=== PATIENT | male | born 1950 | race Caucasian/White ===

== ENCOUNTER → 2016-09-04 | Outpatient (CLI) | payer MEDICARE, OTHER ==
--- NOTE | 2016-09-04 11:00 | US ---
EXAMINATION TYPE: US abdomen complete DATE OF EXAM: 09/04/2016 COMPARISON: Previous US abdomen 10/11/2014 CLINICAL HISTORY: R10.9 R lateral abdominal pain. RUQ pain, history of hepatitis EXAM MEASUREMENTS: Liver Length: 16.5 cm Gallbladder Wall: 1.2 cm CBD: 0.4 cm Spleen: 13.2 cm Right Kidney: 12.3 x 3.6 x 4.7 cm Left Kidney: 13.4 x 5.7 x 5.2 cm Pancreas: there appears to be and irregular shaped, vascular mass either within the pancreas or at t he level of the head of the pancreas measuring 7.5 x 2.8 x 4.2cm Liver: mildly echogenic mass seen in the left lobe with vascularity measuring 1.7 x 1.4 x 2.3cm, rig ht lobe has large area that appears grossly heterogenous, unable to see distinct border, but findings consistent with a large mass Gallbladder: stone seen and thickened wall Evidence for sonographic Persaud's sign: No CBD: wnl Spleen: Splenomegaly is noted, spleen is slightly greater than 13 cm Right Kidney: Inferior pole obscured by overlying bowel gas cortical medullary differentiation is maintained. Left Kidney: Cortical medullary differentiation is maintained. Upper IVC: wnl Abd Aorta: some portions obscured by bowel gas, bifurcation not seen, no AAA visualized FF in Morrisons pouch There is minimal ascites. Kidneys are symmetric and free of hydronephrosis. No renal lesions are see n. IMPRESSION: Findings could represent hepatoma or metastatic disease to the liver. Cholelithiasis, gal lbladder wall thickening is noted, correlate to exclude cholecystitis. Splenomegaly. The liver may be enlarged. Report relayed telephonically to the office of the referring clinician at the time of inte rpretation, to Katherine.
== END | disposition home or self-care (01) ==
LOC: RADUSMAIN 07:55
PROVIDERS: ATTEND Family Medicine
DX: K80.20 Calculus of gallbladder without cholecystitis without obstruction (principal); R16.1 Splenomegaly, not elsewhere classified
CPT/HCPCS: 76700

== ENCOUNTER → 2016-09-11 | Outpatient (CLI) | payer MEDICARE, OTHER ==
--- NOTE | 2016-09-12 09:19 | CT ---
EXAMINATION TYPE: CT abdomen w con DATE OF EXAM: 09/11/2016 COMPARISON: Recent abdominal ultrasound September 04, 2016 and older ultrasound January 07, 2013 HISTORY: Right sided abdominal pain x [address] DLP: 604.60 mGycm, Automated Exposure Control for Dose Reduction was Utilized. CONTRAST: CT scan of the abdomen is performed with oral and with IV Contrast, patient injected with 100 mL of O mnipaque 300. FINDINGS: LUNG BASES: No significant abnormality is appreciated. LIVER/GB: There are 2 low dense lesions right hepatic dome too small to further characterize but like ly reflecting simple cysts. Anteriorly in the left hepatic lobe on image 13 series 3 there is 2.3 cm heterogeneous hypodense lesi on with peripheral nodular enhancement that shows progressive centripetal filling consistent with hem angioma. Corresponding to new area of ultrasound concern occupying significant portion of the right hepatic lo be from diaphragm through inferior aspect there is heterogeneous geographic lesion. There is nonfilli ng of right portal vein branch consistent with thrombus. Tiny dependent gallstone is suspected in gallbladder on axial image 33. PANCREAS: No significant abnormality is seen. SPLEEN: Spleen is upper limits of normal in size. ADRENALS: Slight thickening to both adrenal glands favors benign hyperplasia. KIDNEYS: There is 3 mm calculus upper pole level left kidney on coronal image 69. There are 3-4 small calculi scattered throughout right kidney. There is symmetric cortical medullary uptake and excretio n from both kidneys without evidence of hydronephrosis bilaterally. BOWEL: No significant abnormality is seen. LYMPH NODES: Adjacent to caudate lobe just posterior to the portal vein there is heterogeneous upper abdominal mass measuring 3.7 x 3.6 cm on axial image 21 with craniocaudal dimension of 6 cm on sagitt al image 60. Inferior to this at left para-aortic level there is 3.7 x 2.2 cm oval mass. OSSEOUS STRUCTURES: There is multilevel bridging spurs in the thoracolumbar spine. There is mild to m oderate height loss involving L1-L3 vertebra. [place] osseous structures are demineralized. OTHER: There is mild/moderate calcified atherosclerotic change of distal aorta. IMPRESSION: 1. Abnormal upper to mid abdominal masses or adenopathy worrisome for neoplasm or nneka hepatic adeno keven. 2. Right portal vein branch thrombus with heterogeneity of significant portion of right hepatic lobe. Heterogeneity may be product of altered vascular mechanics but underlying neoplasm such as HCC need to be considered. Thrombus could be bland or tumor thrombus. Latter is favored. Case discussed with ordering nurse practitioner via telephone at time report was finalized.
== END | disposition home or self-care (01) ==
LOC: RADCTMAIN 18:39
PROVIDERS: ATTEND Family Medicine
DX: I81 Portal vein thrombosis (principal); I82.0 Budd-Chiari syndrome
CPT/HCPCS: 74160; Q9967

== ENCOUNTER 2016-09-12 09:54 | Inpatient (IN) | payer MEDICARE, OTHER ==
[2016-09-12] MEDS ORDERED: SODIUM CHLORIDE 0.9% 1,000 ML IV STA (10:17)
[2016-09-12] MEDS ORDERED: PANTOPRAZOLE 40 MG/10 ML VIAL IVP STA (10:17)
--- NOTE | 2016-09-12 10:47 | ED ---
Abdominal Pain HPI - General Chief Complaint: Abdominal Pain Stated Complaint: abnormal CT results Time Seen by Provider: 09/12/16 10:09 Source: patient Mode of arrival: ambulatory Limitations: no limitations - History of Present Illness Initial Comments: This 65-year-old white male presents with the complaint of some abdominal pain. This is primarily into the right upper quadrant and has been present for approximately 2 months. It initially was intermittent but then has become constant over the last 1 month. It is much worse with any eating he developed significant bloating with eating as well. He has had some nausea at times but none currently. He has had occasional constipation but is now taking fiber supplements. He denies any fevers or chills. He had a ultrasound done of his abdomen on 09/04/2016 and this apparently showed the possibility of a liver mass. It also showed cholelithiasis with possible cholecystitis. He had a computed tomography scan of his abdomen and pelvis yesterday and this does show an abdominal/liver mass versus adenopathy, please see report for full details. It also does show a right portal vein thrombus. He was sent in today by his primary provider for further evaluation and treatment. He denies any other complaints or modifying factors. He refuses anything for pain or nausea currently. - Related Data Home Medications Medication Instructions Recorded Confirmed Aspirin 81 mg PO DAILY 08/10/14 09/12/16 [place]-3 Fatty Acids/Fish Oil [Fish 1 cap PO BID 08/10/14 09/12/16 Oil 1,000 mg Softgel] Allergies Allergy/AdvReac Type Severity Reaction Status Date / Time peanut Allergy Nausea & Verified 09/12/16 11:07 Vomiting Review of Systems ROS Statement: Those systems with pertinent positive or pertinent negative responses have been documented in the HPI. ROS Other: All systems not noted in ROS Statement are negative. Past Medical History Past Medical History: Coronary Artery Disease (CAD), Chest Pain / Angina, Myocardial Infarction ([place]) Additional Past Medical History / Comment(s): hepatitis c History of Any Multi-Drug Resistant Organisms: None Reported Past Surgical History: Heart Catheterization With Stent, Hernia Repair, Orthopedic Surgery Past Psychological History: No Psychological Hx Reported Smoking Status: Current every day smoker Past Alcohol Use History: None Reported Past Drug Use History: Marijuana General Exam - General Exam Comments Initial Comments: GENERAL: The patient is well nourished and well hydrated. VITAL SIGNS: Heart rate, blood pressure, respiratory rate reviewed as recorded in nurse's notes. EYES: Pupils are round and reactive. Extraocular movements are intact. No conjunctival / lid redness or swelling. ENT: No external evidence of injury, swelling, or ecchymosis. Airway is patent. Throat is clear. NECK: Nontender. No swelling or evidence of injury. No subcutaneous emphysema. Trachea is midline. No thyroid mass. HEART: Regular rate and rhythm. Good peripheral pulses. LUNGS/CHEST: Breath sounds clear and equal bilaterally. No rales, rhonchi, or wheezes. No ecchymosis, subcutaneous emphysema, or tenderness. ABDOMEN: There is some mild tenderness present in the right upper quadrant. No palpable masses or organomegaly. No peritoneal signs. No abdominal wall swelling or ecchymosis. EXTREMITIES: No extremity tenderness. Normal muscle tone and function. No thoracolumbar tenderness. NEUROLOGIC: Sensation is grossly intact. Cranial nerve exam reveals face is symmetrical, tongue is midline, speech is clear. SKIN: No abrasions or ecchymosis is noted. No induration or masses noted. PSYCHIATRIC: Alert and oriented. Appropriate behavior and judgment. Limitations: no limitations Course Vital Signs 09/12/16 09/12/16 09/12/16 09:59 10:51 12:11 Temperature 98.7 F 97.3 F L Pulse Rate 98 73 87 Respiratory 18 18 20 Rate Blood Pressure 143/84 141/74 140/68 O2 Sat by Pulse 97 93 L 95 Oximetry Medical Decision Making - Medical Decision Making The patient was seen and examined. All diagnostics are reviewed. The CT scan and ultrasound reports were reviewed from recent tests. Laboratory and an x- ray are also ordered. He is given some mild IV hydration. He later does complain of increased pain and receives Dilaudid intravenously with relief. A KUB was done which does not show any acute processes. The laboratory shows elevation of his transaminases and his lipase. Old records are reviewed. It is felt as though he would need admission to the hospital for further treatment. It does appear that he has cholelithiasis with a degree of cold the cystitis. He also has a degree of pancreatitis. He also has the liver and abdominal masses which need further workup. He is having a difficult time with eating and significant abdominal pain. The case will be discussed with medicine in the near future and patient will be admitted with surgical consultation. - Lab Data Result diagrams: 09/12/16 10:41 09/12/16 10:41 Lab Results 09/12/16 09/12/16 Range/Units 10:41 10:41 WBC 7.5 (3.8-10.6) k/uL RBC 5.13 (4.30-5.90) m/uL Hgb 16.6 (13.0-17.5) gm/dL Hct 47.8 (39.0-53.0) % MCV 93.2 (80.0-100.0) fL MCH 32.4 (25.0-35.0) pg MCHC 34.7 (31.0-37.0) g/dL RDW 14.2 (11.5-15.5) % Plt Count 205 (150-450) k/uL Neutrophils % 70 % Lymphocytes % 20 % Monocytes % 7 % Eosinophils % 1 % Basophils % 0 % Neutrophils # 5.2 (1.3-7.7) k/uL Lymphocytes # 1.5 (1.0-4.8) k/uL Monocytes # 0.5 (0-1.0) k/uL Eosinophils # 0.1 (0-0.7) k/uL Basophils # 0.0 (0-0.2) k/uL Sodium 141 (137-145) mmol/L Potassium 4.9 (3.5-5.1) mmol/L Chloride 101 (98-107) mmol/L Carbon Dioxide 27 (22-30) mmol/L Anion Gap 13 mmol/L BUN 10 (9-20) mg/dL Creatinine 0.70 (0.66-1.25) mg/dL Est GFR (MDRD) Af Amer >60 (>60 ml/min/1.73 sqM) Est GFR (MDRD) Non-Af >60 (>60 ml/min/1.73 sqM) Glucose 99 (74-99) mg/dL Calcium 9.7 (8.4-10.2) mg/dL Total Bilirubin 0.7 (0.2-1.3) mg/dL AST 93 H (17-59) U/L ALT 126 H (21-72) U/L Alkaline Phosphatase 180 H (38-126) U/L Total Protein 7.6 (6.3-8.2) g/dL Albumin 4.4 (3.5-5.0) g/dL Amylase 91 (30-110) U/L Lipase 391 H (23-300) U/L Disposition Clinical Impression: Abdominal pain, Abdominal mass, Cholelithiases, Nausea, Liver mass, Pancreatitis, Transaminitis, Portal vein thrombosis, Acute cholecystitis Disposition: ADMITTED IP TO THIS HOSP Condition: Fair Time of Disposition: 12:38 Decision Date: 09/12/16 Decision Time: 12:39
[2016-09-12 11:15] LABS: Basophils % (A) 0 %; CH 31.4; CHCM 33.9; Eosinophils # (A) 0.1 k/uL (0-0.7); Eosinophils % (A) 1 %; HCT 47.8 % (39.0-53.0); HDW 2.39; HGB 16.6 gm/dL (13.0-17.5); Luc # (Auto) 0.16; Luc % (Auto) 2; Lymphocytes # (A) 1.5 k/uL (1.0-4.8); Lymphocytes % (A) 20 %; MCH 32.4 pg (25.0-35.0); MCHC 34.7 g/dL (31.0-37.0); MCV 93.2 fL (80.0-100.0); Mean Platelet Volume 7.7; Monocytes # (A) 0.5 k/uL (0-1.0); Monocytes % (A) 7 %; Neutrophils # (A) 5.2 k/uL (1.3-7.7); Neutrophils % (A) 70 %; RBC 5.13 m/uL (4.30-5.90); RDW 14.2 % (11.5-15.5); WBC 7.5 k/uL (3.8-10.6); WBC (Perox) 7.41
[2016-09-12 11:26] LABS: ALT 126 U/L (21-72); AST 93 U/L (17-59); Alkaline Phosphatase 180 U/L (38-126); Amylase 91 U/L (30-110); Anion Gap 13 mmol/L; Blood Urea Nitrogen 10 mg/dL (9-20); Calcium 9.7 mg/dL (8.4-10.2); Carbon Dioxide 27 mmol/L (22-30); Chloride 101 mmol/L (98-107); Glucose 99 mg/dL (74-99); Non-African American GFR(MDRD) >60 (>60 ml/min/1.73 sqM); Potassium 4.9 mmol/L (3.5-5.1); Sodium 141 mmol/L (137-145); Total Bilirubin 0.7 mg/dL (0.2-1.3); Total Protein 7.6 g/dL (6.3-8.2)
[2016-09-12] MEDS ORDERED: HYDROmorphone 1 MG/ML 1 ML SYRINGE IVP STA (12:03)
--- NOTE | 2016-09-12 12:03 | XR ---
EXAMINATION TYPE: XR KUB DATE OF EXAM: 09/12/2016 11:49 AM CLINICAL HISTORY: Abdominal pain, recent abnormal CT. TECHNIQUE: Two upright KUB image of the abdomen are obtained. COMPARISON: CT abdomen 09/11/2016. FINDINGS: Scattered gas is seen in non-distended small bowel loops. Gas and contrast material is seen in non-distended colon. Osseous structures are demineralized. Multilevel mild compression type fract ure deformities are seen. Lung bases are clear. No pneumoperitoneum is present. IMPRESSION: Overall nonobstructive bowel gas pattern.
[2016-09-12] MEDS ORDERED: ONDANSETRON 4 MG/2 ML VIAL IVP PRN (12:32)
[2016-09-12] MEDS ORDERED: HYDROcodone/APAP 5-325MG 1 EACH TAB PO PRN (12:32)
[2016-09-12] MEDS ORDERED: ACETAMINOPHEN TAB 325 MG TAB PO PRN (12:32)
[2016-09-12] MEDS ORDERED: HYDROmorphone 1 MG/ML 1 ML SYRINGE IV PRN (12:32)
[2016-09-12] MEDS ORDERED: NALOXONE 0.4 MG/ML 1 ML VIAL IV PRN (12:32)
[2016-09-12 13:06] LABS: Appearance,Urine Clear (Clear); Bilirubin,Urine Negative (Negative); Glucose,Urine (UA) Negative (Negative); Ketones,Urine Negative (Negative); Leukocyte Esterase,Urine Negative (Negative); Nitrite,Urine Negative (Negative); PH, Urine 5.5 (5.0-8.0); Protein,Urine Negative (Negative); Specific Gravity,Urine 1.013 (1.001-1.035); UA Billing (MACRO vs. MICRO) CHEM; Urobilinogen,Urine <2.0 mg/dL (<2.0)
[2016-09-12 14:51] VITALS: BMI 24.4
--- NOTE | 2016-09-12 18:00 | HP ---
A 65-year-old white male admitted with some abdominal pain. He had CAT scan, ultrasound done as an outpatient yesterday. He was sent here because of this. He has had 2 months of abdominal pain and bloating in the right upper quadrant. CAT scan and ultrasound showed some possible blood clot in the liver as well as cholecystitis and liver mass with some adenopathy surrounding the liver, suspicious for hepatocellular carcinoma. He was admitted to the hospital. Liver physician, surgeon, oncologist all consulted. HOME MEDICATIONS: 1. Aspirin. 2. [place] fatty acids. 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 He has 9 kids. He has been smoking for many years, 34 years, at least a pack a day and he was a welder tech for 40 years, breathing in welding fumes. ALLERGIES: PEANUTS. REVIEW OF SYSTEMS: Negative except for mentioned in ( ). PAST MEDICAL HISTORY: Coronary artery disease, myocardial infarction, hepatitis C. PAST SURGERY: Heart catheterization and stent, hernia repair, orthopedic surgery. As mentioned, current every day smoker and marijuana. PHYSICAL EXAM: VITAL SIGNS: Stable, afebrile. CONSTITUTIONAL: Well nourished, well hydrated. OPHTHALMOLOGIC: Pupils equal, and reactive to light and accommodation. ENT: External ear canals within normal limits. NECK: Supple. No mass. HEART: Regular rate and rhythm. LUNGS: No rales, rhonchi or wheeze. ABDOMEN: Tenderness to palpation, right upper quadrant. No mass or organomegaly. EXTREMITIES: No cyanosis, clubbing, edema. NEUROLOGIC: Alert and oriented x3. PSYCHIATRIC: Fair mood and affect. Temp 98.7, pulse 73 to 98, respiratory rate 18 to 20, blood pressure 140s over 60s to 80s. O2 95% to 97% on room air. ASSESSMENT: 1. Right upper quadrant abdominal pain, cholecystitis, cholelithiasis, possible liver abscess, pancreatitis; adenopathy, perihepatic, suspicious for hepatocellular carcinoma. Surgical consult, liver consult, oncology consult. Should have ( ), amylase, lipase in the morning. 2. Portal vein thrombosis. Hematology is ordered as well as vascular. Await Surgery and Gastroenterology consults.
[2016-09-12] MEDS ORDERED: NON-FORMULARY DRUG (Omega-3 Fatty Acids/Fish Oil [Fish Oil 1,000 Mg Softgel] 1 CAP) PO SCH (21:00)
[2016-09-13 07:26] LABS: Basophils # (A) 0.1 k/uL (0-0.2); Basophils % (A) 1 %; CH 31.5; CHCM 33.7; Eosinophils # (A) 0.1 k/uL (0-0.7); Eosinophils % (A) 1 %; HCT 46.3 % (39.0-53.0); HGB 16.3 gm/dL (13.0-17.5); Luc # (Auto) 0.15; Luc % (Auto) 2; Lymphocytes # (A) 1.5 k/uL (1.0-4.8); Lymphocytes % (A) 20 %; MCH 33.1 pg (25.0-35.0); MCHC 35.1 g/dL (31.0-37.0); MCV 94.1 fL (80.0-100.0); Mean Platelet Volume 8.2; Monocytes # (A) 0.5 k/uL (0-1.0); Monocytes % (A) 7 %; Neutrophils # (A) 5.3 k/uL (1.3-7.7); Neutrophils % (A) 69 %; RBC 4.92 m/uL (4.30-5.90); RDW 14.1 % (11.5-15.5); WBC 7.6 k/uL (3.8-10.6); WBC (Perox) 7.84
[2016-09-13 07:32] LABS: ALT 132 U/L (21-72); AST 114 U/L (17-59); Alkaline Phosphatase 152 U/L (38-126); Amylase 49 U/L (30-110); Anion Gap 12 mmol/L; Blood Urea Nitrogen 7 mg/dL (9-20); Calcium 9.3 mg/dL (8.4-10.2); Carbon Dioxide 22 mmol/L (22-30); Chloride 103 mmol/L (98-107); Glucose 101 mg/dL (74-99); Non-African American GFR(MDRD) >60 (>60 ml/min/1.73 sqM); Potassium 4.8 mmol/L (3.5-5.1); Sodium 137 mmol/L (137-145); Total Bilirubin 1.1 mg/dL (0.2-1.3); Total Protein 7.3 g/dL (6.3-8.2)
[2016-09-13] MEDS ORDERED: ASPIRIN 81 MG CHEW PO SCH (09:00)
[2016-09-13] MEDS ORDERED: PANTOPRAZOLE 40 MG/10 ML VIAL IV SCH (09:00)
[2016-09-13] MEDS ORDERED: ENOXAPARIN 40 MG/0.4 ML SYRINGE SQ SCH (09:00)
--- NOTE | 2016-09-13 09:27 | P.GSCN ---
History of Present Illness Consult date: 09/13/16 Reason for Consult: Abdominal pain History of present illness: This is a 65-year-old male who was admitted to the hospital complaints of abdominal pain. Patient had a CAT scan performed which showed evidence of cholelithiasis. Patient also has a possible liver mass with portal adenopathy and possible portal vein occlusion. The patient states his pain was significant yesterday. However today the pain is resolved. Patient states he is asymptomatic and denies any significant abdominal pain. He is scheduled for MRI of the liver this morning. Review of Systems - Constitutional Reports as per HPI Past Medical History Past Medical History: Coronary Artery Disease (CAD), Chest Pain / Angina, GERD/ Reflux, Liver Disease, Myocardial Infarction ([place]) Additional Past Medical History / Comment(s): Liver cirrhosis, hepatitis c- treated but "relapsed", diverticular dx, small hiatal hernia, back pain-past lumbar/sacral fractures, tinnitus bilaterally. Last Myocardial Infarction Date:: 01/20/08 History of Any Multi-Drug Resistant Organisms: None Reported Past Surgical History: Heart Catheterization With Stent, Hernia Repair, Orthopedic Surgery Additional Past Surgical History / Comment(s): Bilateral inguinal hernia repairs , EGD/colonoscopy, reconstructive surgery R arm after dog attack. Past Anesthesia/Blood Transfusion Reactions: No Reported Reaction Date of Last Stent Placement:: 01/20/08 Past Psychological History: No Psychological Hx Reported Additional Psychological History / Comment(s): Pt resides with his girlfriend, Patsy. He uses a cane prn. He drives. He is independent. Smoking Status: Current every day smoker Past Alcohol Use History: None Reported Additional Past Alcohol Use History / Comment(s): Pt started smoking in 1960. He smokes a pack every 3 days. Past Drug Use History: Marijuana Additional Drug Use History / Comment(s): Pt smokes marijuana on occasion but not daily. - Past Family History Father Additional Family Medical History / Comment(s): Father committed suicide when he has 52 yrs old. Mother Family Medical History: CVA/TIA, Deep Vein Thrombosis (DVT) Additional Family Medical History / Comment(s): Mother of a blood clot that went from her heart to her brain. She was 67yrs old when she . Medications and Allergies Home Medications Medication Instructions Recorded Confirmed Type Aspirin 81 mg PO DAILY 08/10/14 09/12/16 History [place]-3 Fatty Acids/Fish Oil [Fish 1 cap PO BID 08/10/14 09/12/16 History Oil 1,000 mg Softgel] Albuterol Sulfate [Proair 1 puff PO Q4HR PRN 09/12/16 09/12/16 History Respiclick] Allergies Allergy/AdvReac Type Severity Reaction Status Date / Time peanut Allergy Nausea & Verified 09/12/16 11:07 Vomiting Surgical - Exam Vital Signs Temp Pulse Resp BP Pulse Ox 98.7 F 98 18 143/84 97 09/12/16 09:59 09/12/16 09:59 09/12/16 09:59 09/12/16 09:59 09/12/16 09:59 - General well developed, no distress - Eyes PERRL - ENT normal pinna - Neck no masses - Respiratory normal expansion - Cardiovascular Rhythm: regular - Abdomen Abdomen: soft, non tender Results - Labs 09/13/16 06:11 09/13/16 06:11 Abnormal Lab Results - Last 24 Hours (Table) 09/12/16 09/13/16 Range/Units 10:41 06:11 BUN 7 L (9-20) mg/dL Creatinine 0.59 L (0.66-1.25) mg/dL Glucose 101 H (74-99) mg/dL AST 93 H 114 H (17-59) U/L ALT 126 H 132 H (21-72) U/L Alkaline Phosphatase 180 H 152 H (38-126) U/L Lipase 391 H (23-300) U/L Diabetes panel 09/12/16 09/13/16 Range/Units 10:41 06:11 Sodium 141 137 (137-145) mmol/L Potassium 4.9 4.8 (3.5-5.1) mmol/L Chloride 101 103 (98-107) mmol/L Carbon Dioxide 27 22 (22-30) mmol/L BUN 10 7 L (9-20) mg/dL Creatinine 0.70 0.59 L (0.66-1.25) mg/dL Glucose 99 101 H (74-99) mg/dL Calcium 9.7 9.3 (8.4-10.2) mg/dL AST 93 H 114 H (17-59) U/L ALT 126 H 132 H (21-72) U/L Alkaline Phosphatase 180 H 152 H (38-126) U/L Total Protein 7.6 7.3 (6.3-8.2) g/dL Albumin 4.4 4.0 (3.5-5.0) g/dL Calcium panel 09/12/16 09/13/16 Range/Units 10:41 06:11 Calcium 9.7 9.3 (8.4-10.2) mg/dL Albumin 4.4 4.0 (3.5-5.0) g/dL Pituitary panel 09/12/16 09/13/16 Range/Units 10:41 06:11 Sodium 141 137 (137-145) mmol/L Potassium 4.9 4.8 (3.5-5.1) mmol/L Chloride 101 103 (98-107) mmol/L Carbon Dioxide 27 22 (22-30) mmol/L BUN 10 7 L (9-20) mg/dL Creatinine 0.70 0.59 L (0.66-1.25) mg/dL Glucose 99 101 H (74-99) mg/dL Calcium 9.7 9.3 (8.4-10.2) mg/dL Adrenal panel 09/12/16 09/13/16 Range/Units 10:41 06:11 Sodium 141 137 (137-145) mmol/L Potassium 4.9 4.8 (3.5-5.1) mmol/L Chloride 101 103 (98-107) mmol/L Carbon Dioxide 27 22 (22-30) mmol/L BUN 10 7 L (9-20) mg/dL Creatinine 0.70 0.59 L (0.66-1.25) mg/dL Glucose 99 101 H (74-99) mg/dL Calcium 9.7 9.3 (8.4-10.2) mg/dL Total Bilirubin 0.7 1.1 (0.2-1.3) mg/dL AST 93 H 114 H (17-59) U/L ALT 126 H 132 H (21-72) U/L Alkaline Phosphatase 180 H 152 H (38-126) U/L Total Protein 7.6 7.3 (6.3-8.2) g/dL Albumin 4.4 4.0 (3.5-5.0) g/dL - Imaging Chest x-ray: report reviewed (Right portal vein possible tumor thrombus, adenopathy, possible liver mass) Assessment and Plan Plan: Possible liver mass with adenopathy and portal vein tumor thrombus. Patient is a centimeter currently. Patient will have an MRI performed today. Would recommend transfer to liver specialist at [facility].
--- NOTE | 2016-09-13 10:21 | CONS ---
DATE OF CONSULTATION: Edin Foy is a 65-year-old gentleman who has been admitted to [facility] with history of abdominal pain. Patient has a work-up including ultrasound and CAT scan which suggested a portal vein DVT and, possible cholecystitis, possible pancreatitis and possible abdominal mass. Patient had a heart catheterization and stent and hernia repair in the past. PERSONAL HISTORY: ALLERGIC TO PEANUTS. On examination, vital signs are stable. ABDOMEN: Protuberant. No peritoneal sign noted. Mild tenderness noted in the right upper quadrant. VASCULAR EXAMINATION: Brachial, radial and femoral pulses are present. IMPRESSION: Cholelithiasis, versus pancreatitis versus abdominal mass and portable vein thrombosis. Discussed with Dr. Saroj Cabrera. We discussed with general surgeon about further management. We will follow with you.
--- NOTE | 2016-09-13 10:39 | MR ---
EXAMINATION TYPE: MR liver wo/w con DATE OF EXAM: 09/13/2016 COMPARISON: Previous CT scan of the abdomen dated 09/11/2016. HISTORY: abn CT, possible HCC CONTRAST: Standard multiplanar, multisequence MRI departmental protocol utilizing 15 mL intravenous MultiHance gadolinium contrast. FINDINGS: The complete posterior segment of the right lobe of the liver is replaced by heterogeneousl y enhancing mass. This measures approximately 14 x 13 x 10.5 cm. This also involves the caudate lobe. There are nneka hepatis lymph nodes. The largest measures 3.4 x 4.3 cm. The smaller measures 3.2 x 2 .5 cm. There is evidence of thrombosis of the right portal vein. There is a 2.5 cm lesion in the lateral segment of the left lobe of the liver which shows globular ce ntripetal enhancement compatible with a hemangioma. There are 2, simple appearing hepatic cysts. Ther e is an 11 mm cyst in the hepatic dome and a 12.4 mm cyst near the caudate lobe. There is a 1 cm, simple appearing right renal cyst. The spleen is unremarkable. Both adrenal glands appear slightly thickened. No definite pancreatic abnormality is seen. Visualized bowel loops appear unremarkable. IMPRESSION: 1. Large, heterogenous enhancing mass involving most of the posterior segment of the right lobe of th e liver as well as part of the caudate lobe consistent with hepatocellular carcinoma. 2. Hemangioma in the lateral segment of the left lobe of the liver. 3. Simple appearing hepatic cysts and right renal cyst. 4. Large nneka hepatis lymph nodes. 5. Thrombosis of the right portal vein.
--- NOTE | 2016-09-13 12:53 | CONS ---
DATE OF CONSULTATION: REASON FOR CONSULTATION: Liver mass. HISTORY OF PRESENT ILLNESS: The patient is a 65-year-old white male present=gray to the hospital with right-sided abdominal pain for the last 2 months' duration. He has history of chronic hepatitis C infection with cirrhosis of the liver diagnosed about 4 years ago. He was treated with oral antiviral therapy about 3 years ago and according to the patient he had a relapse. Because of right-sided abdominal pain he saw Dr. Cabrera on outpatient basis. Initially had an ultrasound of abdomen done that showed some lesions in the liver and subsequently a CT of the abdomen was performed which once again showed a possible heterogeneous liver mass suspicious for neoplasm. Also, there was evidence of portal vein thrombosis and some adenopathy in the nneka hepatis. Because of the clinical suspicion for malignancy we are consulted for further evaluation. The patient complains of decreasing appetite, weight loss of 15 pounds in the last 2 months, pain is mostly in the right upper quadrant area, has been intermittent and occasional nausea or vomiting. No coffee-ground emesis. PAST MEDICAL HISTORY: Chronic hepatitis infection diagnosed 4 years ago. Was treated with oral antiviral therapy but had a relapse about 3 years ago. History of cirrhosis of the liver. History of heavy alcohol abuse in the past, which he quit drinking about 5 years ago. MEDICATIONS AT HOME: Aspirin, omega-3 fatty acid. ALLERGIES: PEANUTS. SOCIAL HISTORY: Heavy alcohol use in the past, quit five years ago. Chronic smoker 1 pack per day for the last 40 years. REVIEW OF SYSTEMS: CARDIOPULMONARY: No chest pain or shortness of breath. GENITOURINARY: No dysuria or hematuria. MUSCULOSKELETAL: Unremarkable. SKIN: Unremarkable. ENDOCRINE: Unremarkable. PSYCHIATRIC: Unremarkable. NEUROLOGY: Unremarkable. ENT/vision: Unremarkable. CONSTITUTIONAL: Weight loss of 15 pounds. On physical examination, he appears comfortable, in no apparent distress. Vitals as are stable. Blood pressure 154/91, pulse 81, temperature 98. HEENT examination unremarkable. Conjunctivae pink. Sclerae anicteric. Oral cavity, no lesions. NECK: No JVD or lymph node enlargement. CHEST: Clear to auscultation. HEART: Regular rate and rhythm. ABDOMEN: Soft. Bowel sounds are positive. No organomegaly. EXTREMITIES: No pedal edema. SKIN: No rashes. NEURO: He is alert and oriented x3. No focal deficits. ( ). Labs at the time of admission to the hospital: WBC 7.5, hemoglobin 6.6. Platelets are within normal limits. AST is 114, ALT is 132, alk phos 152 and T-bili 1.1. CT of the abdomen done 2 days ago showed right portal vein thrombosis and heterogenicity involving the right hepatic lobe suspicious for neoplasm. Also, evidence of adenopathy in the nneka hepatis. IMPRESSION: This is a patient with history of chronic hepatitis C infection and cirrhosis of the liver diagnosed 4 years ago. Was treated with oral antiviral therapy in the past but had a relapse. Now presents with right upper quadrant abdominal pain for the last 2 months duration. Ultrasound and CAT scan showed a heterogeneous mass involving the right lobe of the liver suspicious for neoplasm associated with portal vein thrombosis. Most likely we are dealing with hepatocellular carcinoma given his underlying chronic liver disease with chronic hepatitis C infection. RECOMMENDATIONS: 1. Obtain alpha-fetoprotein level. 2. Obtain hepatitis C viral RNA quantitation. 3. Will schedule him for an MRI of the liver to hold delineate the mass more accurately. 4. Consultation with Dr. Kendrick and will follow the patient closely during his hospital stay. Thank you for this consultation.
--- NOTE | 2016-09-13 17:13 | P.PN ---
Progress Note - Text Consult dictated Impression: 1- T2N1Mo (stage IV-A) suspected Hepatocellular Carcinoma 2- Hx of Hepatitis-C Rec: 1- Reviewed findings on CT Scan & MRI with patient/family 2- Will refer to a tertiary care facility : the patient will decide if he wants [facility] and let me know 3- He is not a candidate for complete resection > will need partial resection> Sorafenib Answered all questions/concerns
[2016-09-13] MEDS ORDERED: ALPRAZolam 0.5 MG TAB PO PRN (21:45)
--- NOTE | 2016-09-13 22:18 | CONS ---
DATE OF CONSULTATION: 09/13/2016. REASON FOR CONSULTATION: Suspected liver cancer. HISTORY OF PRESENT ILLNESS: Mr. Foy is a 65-year-old gentleman who complained of progressive abdominal pain. He had a recent CT scan of the abdomen and pelvis showing abnormal upper to mid abdominal masses worrisome for neoplasm in addition to Saturnino hepatic lymphadenopathy prior liver ultrasound in September 2014 showed a 2.4 x 2.4 x 2.8 cm hypoechoic lesion left in the portable vein. The patient was admitted to the hospital with abdominal pain. MRI of the abdomen today revealed the right lobe of the liver to be replaced by a heterogeneous enhancing mass measuring 14 x 13 x 10.5 cm, invade the caudate lobe with large saturnino hepatitis nodes, larger size of 3.4 x 4.3 cm. When seen today, he seems to be reasonably comfortable. PAST MEDICAL HISTORY: Hepatitis C, coronary artery disease with myocardial infarction. PAST SURGICAL HISTORY: Coronary angiography and percutaneous transluminal coronary angioplasty with stent placement and herniorrhaphy. CURRENT MEDICATIONS: Reviewed with the patient and listed in electronic medical record. SOCIAL HISTORY: The patient smoked 1 pack of cigarettes daily for over 40 years. He reported prior history of heavy alcohol consumption, but none recently. FAMILY HISTORY: Noncontributory. On examination the patient was alert and oriented. The skin is warm and dry, pale but not icteric. Hair distribution within normal for age and gender. Blood pressure was 135/79, pulse 71 and regular, respiratory rate 17 and not labored, temperature 97.9. NECK: No pathologic cervical, supraclavicular, infraclavicular or axillary lymphadenopathy. Trachea was in midline. CHEST: Clear with clear with good air exchange bilaterally. HEART: Sounds are normal, S1 and S2. There was no S3, rubs or murmurs auscultated. ABDOMEN: Soft with moderate, tenderness in the right upper quadrant. EXTREMITIES: Appears unremarkable. NEUROLOGIC: No focal neurologic deficits. IMPRESSION: 1. Findings the findings on CAT scan and MRI highly suspicious for hepatocellular carcinoma stage T2N1MO for overall group staging of 4A. 2. History of hepatitis C on treatment by Dr. Baca's office. 3. History of coronary artery disease, currently stable. RECOMMENDATIONS: 1. Discussed CT scan and MRI findings with the patient and his family. 2. Recommend liver biopsy for confirmation. 3. The patient needs to be referred to a tertiary care facility, he will choose between [facility] [place] or [facility] and let me know his choice and I will make referral. 4. Regarding of where the patient goes for tertiary consultation, he is not a candidate for full resection of suspected malignancy and he will likely receive partial resection with subsequence ( ) therapy. I answered the patient's questions and concerns to his satisfaction. Thank you for allowing us the privilege to participate in the care of Mr. Foy.
[2016-09-14] MEDS ORDERED: PANTOPRAZOLE 40 MG/10 ML VIAL ONE (09:00)
[2016-09-14] MEDS ORDERED: ENOXAPARIN 40 MG/0.4 ML SYRINGE SQ ONE (09:00)
[2016-09-14] MEDS ORDERED: HYDROmorphone 1 MG/ML 1 ML SYRINGE ONE (09:00)
[2016-09-14] MEDS ORDERED: ASPIRIN 81 MG CHEW ONE (09:00)
[2016-09-14 09:19] VITALS: BP 150/82; PULSE 80; RESP 16; TEMP 97.8
--- NOTE | 2016-09-14 11:23 | PN ---
DATE OF SERVICE: 09/13/2016 SUBJECTIVE: 65-year-old white male who had a MRI of the liver today showing entire right lobe of the liver filled with mass, perihepatic adenopathy. Awaiting consultation with [facility] for either transfer or discharge home to follow up with cancer doctor as an outpatient. Dr. Lawson saw him today, Impression was a T2 N1 MO stage IV hepatocellular carcinoma. History of hepatitis C. Referred him to a tertiary care facility. He will either go to [facility] or [facility]. He states he is not a candidate for complete resection, will need partial resection, ( ) chemo. Would transfer the patient tomorrow.
--- NOTE | 2016-09-14 12:39 | PN ---
DATE OF SERVICE: 09/14/2016 The patient is a 65-year-old white male admitted to the hospital with right upper quadrant abdominal pain for the last 2 months' duration. He has history of chronic hepatitis C infection and cirrhosis of the liver diagnosed approximately 4 years ago. He was treated with triple antiviral therapy but according to the patient he had a relapse. Repeat labs are still pending. She had an MRA of the liver done yesterday that showed large heterogeneous mass involving the right lobe of the liver as well as portal adenopathy, suspicious for hepatocellular carcinoma. Dr. Lawson from Oncology has seen the patient. Alpha-fetoprotein levels are still pending. This morning he denies any complaints. Still has some vague right upper quadrant abdominal pain. No nausea, no vomiting. On physical examination, he appears comfortable, in no apparent distress. Vitals as are stable. Blood pressure 125/74, pulse 67, temperature 97.2. HEENT: Unremarkable. Conjunctivae pink. Sclerae anicteric. Oral cavity, no lesions. NECK: No JVD or lymph node enlargement. CHEST: Clear to auscultation. HEART: Regular rate and rhythm. ABDOMEN: Soft. Mild tenderness in the right upper quadrant area. EXTREMITIES: No pedal edema. SKIN: No rashes. NEURO: He is alert and oriented x3. No focal deficits. LABS: Labs from yesterday, AST 114, ALT 132, alk phos 152, t-bili 1.1. The rest of the labs are within normal limits. Alpha-fetoprotein is still pending at the time of this dictation. IMPRESSION: 1. Liver mass involving the right lobe of the liver. MRI of the liver done yesterday did show large heterogeneous mass measuring 7 x 14 cm involving the right lobe of the liver suspicious for hepatocellular carcinoma. Alpha-fetoprotein is still pending at the time of this dictation. 2. Chronic hepatitis C infection and cirrhosis of the liver. 3. Remote history of heavy alcohol use. RECOMMENDATIONS: Discussed with the patient the MRI results. The patient was already seen by Dr. Lawson and apparently he will be discharged home today with outpatient follow up with Interventional Radiology at [facility] for further management of the liver lesion. Thank you for this consultation.
[2016-09-16 14:59] LABS: LOG HCV IU/mL 6.82 (<1.08)
--- NOTE | 2016-09-24 12:51 | DS ---
DISCHARGE SUMMARY DATE OF ADMISSION: 09/11/2016 DATE OF DISCHARGE: 09/14/2016 DISCHARGE DIAGNOSES: 1. Chronic hepatitis C. 2. Liver cirrhosis. 3. Liver mass, right lobe of the liver, probable hepatocellular carcinoma. 3. Alcohol abuse. Follow up with [facility], with Dr. Lawson in Oncology in the next week as well as Interventional, Radiology at [facility] for further management of the liver lesion. DISCHARGE MEDICATIONS: 1. Aspirin 81 mg daily. 2. [place]-3 fatty acids daily. 4. Albuterol sulfate 2 puffs q.4 hours p.r.n. CONDITION: Stable. PROGNOSIS: Guarded. Ambulate as tolerated. HOSPITAL COURSE OF EVENTS: A white male came in with right upper quadrant pain , found to have extremely large liver mass, liver enzymes. Oncology, liver specialists were all consulted. He was found to have a large liver mass. He will have to follow up as an outpatient with this for a biopsy and treatment with oncology. This was all arranged for the patient. He was in stable condition on discharge. [facility]
== END 2016-09-14 10:03 | disposition home or self-care (01) | DRG 435 ==
LOC: EC 09:54 → 3SUR 12:32
PROVIDERS: ADMIT Family Medicine; ATTEND Family Medicine
DX: C22.0 Liver cell carcinoma (principal); I81 Portal vein thrombosis; K80.10 Calculus of gallbladder with chronic cholecystitis without obstruction; B18.2 Chronic viral hepatitis C; F17.210 Nicotine dependence, cigarettes, uncomplicated; F10.10 Alcohol abuse, uncomplicated; I25.10 Atherosclerotic heart disease of native coronary artery without angina pectoris; I25.2 Old myocardial infarction; K21.9 Gastro-esophageal reflux disease without esophagitis; K74.60 Unspecified cirrhosis of liver; F12.90 Cannabis use, unspecified, uncomplicated; K44.9 Diaphragmatic hernia without obstruction or gangrene; K57.90 Diverticulosis of intestine, part unspecified, without perforation or abscess without bleeding; R59.0 Localized enlarged lymph nodes; Z79.82 Long term (current) use of aspirin; Z95.5 Presence of coronary angioplasty implant and graft
CPT/HCPCS: 36415; 74000; 74160; 74183; 80053; 81003; 82105; 82150; 83690; 85025; 87522; 96361; 96374; 96375; 99285

== ENCOUNTER 2016-11-02 19:08 | Inpatient (IN) | payer MEDICARE, OTHER ==
[~2016-11-02 19:08] MED LIST: CALCIUM CHLORIDE 100 MG/ML 10 ML SYRINGE ONE; EPINEPHrine 10 ML SYRINGE (0.1 MG/ML) ONE; SODIUM BICARB 8.4% 50 ML SYR (1 MEQ/ML) ONE; SODIUM CHLORIDE IV ONE; [UNRECOGNIZED DRUG - OTHER] IV ONE
[2016-11-02] MEDS ORDERED: ONDANSETRON 4 MG/2 ML VIAL IVP STA (19:57)
[2016-11-02] MEDS ORDERED: HYDROmorphone 1 MG/ML 1 ML SYRINGE IVP STA (19:57)
--- NOTE | 2016-11-02 20:02 | ED ---
Nausea/Vomiting/Diarrhea HPI - General Chief complaint: Nausea/Vomiting/Diarrhea Stated complaint: nausea,vomiting,ascites Time Seen by Provider: 11/02/16 19:24 Source: EMS, RN notes reviewed, old records reviewed Mode of arrival: EMS Limitations: no limitations - History of Present Illness Initial comments: This is a 65-year-old male presenting to the emergency Department chief complaint of increased vomiting, and abdominal pain for the past 3 days. Patient has history of liver cancer as well as other tumors within the abdomen. Patient's does not exactly say what they are. Patient reports that he had paracentesis drainage 2 weeks ago. Patient reports that shortly afterwards returned. Patient denies any fevers or chills. He reports that he's had some bloody emesis as well as [id number] emesis. Patient reports that he is currently being treated with Dr. Robledo and [facility] Patient reports that he's had normal bowel movements. He reports that he feels extremely bloated and full. - Related Data Home Medications Medication Instructions Recorded Confirmed Aspirin 81 mg PO DAILY 08/10/14 11/03/16 Lovenox(Unknown Dose) 1 dose SQ DAILY 11/02/16 11/03/16 Nexavar 100mg 100 mg PO BID 11/02/16 11/03/16 Allergies Allergy/AdvReac Type Severity Reaction Status Date / Time peanut AdvReac Nausea & Verified 11/02/16 19:44 Vomiting Review of Systems ROS Statement: Those systems with pertinent positive or pertinent negative responses have been documented in the HPI. ROS Other: All systems not noted in ROS Statement are negative. Past Medical History Past Medical History: Coronary Artery Disease (CAD), Chest Pain / Angina, GERD/ Reflux, Liver Disease, Myocardial Infarction (MS) Additional Past Medical History / Comment(s): Liver cirrhosis, hepatitis c- treated but "relapsed", diverticular dx, small hiatal hernia, back pain-past lumbar/sacral fractures, tinnitus bilaterally. Last Myocardial Infarction Date:: 01/20/08 History of Any Multi-Drug Resistant Organisms: None Reported Past Surgical History: Heart Catheterization With Stent, Hernia Repair, Orthopedic Surgery Additional Past Surgical History / Comment(s): Bilateral inguinal hernia repairs , EGD/colonoscopy, reconstructive surgery R arm after dog attack. Past Anesthesia/Blood Transfusion Reactions: No Reported Reaction Date of Last Stent Placement:: 01/20/08 Past Psychological History: No Psychological Hx Reported Smoking Status: Current every day smoker Past Alcohol Use History: None Reported Past Drug Use History: Marijuana - Past Family History Father Additional Family Medical History / Comment(s): Father committed suicide when he has 52 yrs old. Mother Family Medical History: CVA/TIA, Deep Vein Thrombosis (DVT) Additional Family Medical History / Comment(s): Mother of a blood clot that went from her heart to her brain. She was 67yrs old when she . General Exam - General Exam Comments Initial Comments: This is a 65-year-old male. Patient appears jaundiced. Patient does appear to be very weak. Limitations: no limitations General appearance: alert, in no apparent distress Head exam: Present: atraumatic, normocephalic, normal inspection Eye exam: Present: normal appearance, scleral icterus ENT exam: Present: normal exam, mucous membranes moist Neck exam: Present: normal inspection. Absent: tenderness, meningismus, lymphadenopathy Respiratory exam: Present: normal lung sounds bilaterally. Absent: respiratory distress, wheezes, rales, rhonchi, stridor Cardiovascular Exam: Present: regular rate, normal rhythm, normal heart sounds. Absent: systolic murmur, diastolic murmur, rubs, gallop, clicks GI/Abdominal exam: Present: distended, normal bowel sounds. Absent: soft ( Patient's abdomen is distended and firm. Tympanic on percussion.), tenderness, guarding, rebound, rigid Extremities exam: Present: normal inspection, full ROM, normal capillary refill. Absent: tenderness, pedal edema, joint swelling, calf tenderness Back exam: Present: normal inspection Neurological exam: Present: alert, oriented X3, CN II-XII intact Psychiatric exam: Present: normal affect, normal mood Skin exam: Present: warm, dry, intact. Absent: normal color ( is jaundice. ), rash Course Vital Signs 11/02/16 11/02/16 11/02/16 19:25 21:31 22:31 Temperature 97.5 F L Pulse Rate 105 H 106 H 108 H Respiratory 22 20 20 Rate Blood Pressure 155/92 168/78 149/81 O2 Sat by Pulse 98 99 98 Oximetry Medical Decision Making - Medical Decision Making This is a 65-year-old male presenting to the emergency Department chief complaint of increased vomiting, and abdominal pain for the past 3 days. Patient has history of liver cancer as well as other tumors within the abdomen. He reports that he's had some bloody emesis as well as [id number] emesis. Patien appears jaundice and has severe ascites. Patient received IV pain mediaction and started on fluids. Patient received KUB which shows dilated RUQ loops, initially concerned for bowel obstruction. CT abodmen and pelvis was preformed. Patient labs show signs of anemia, paitent denies any chest pain or shortness of breath. Lab also shows mild leuikocytosis, and elvated K, however sample was initally hemolzed. Patient K was redrawn and was normalizing. While in EC patient had one episode of vomiting, it was tested for blood and was positive. Patient CT shows enlargement of tumor on liver, as well as a pancreatic mass. These seem to be increased in size forom previous visit. Patient family and patient informed of results. Patient will be admitted for further evlauation and possible paracentesis SHIRA. Patient agrees to treatment plan. Patient will be admitted to Dr. Martínez, as he is [place]. Karla also will also hace consult wiht Dr. Baca, from GI. - Lab Data Result diagrams: 11/02/16 20:15 11/03/16 00:10 Lab Results 11/02/16 11/02/16 11/02/16 Range/Units 20:15 20:15 20:15 WBC 13.2 H (3.8-10.6) k/uL RBC 2.63 L (4.30-5.90) m/uL Hgb 8.0 L D (13.0-17.5) gm/dL Hct 23.8 L (39.0-53.0) % MCV 90.6 (80.0-100.0) fL MCH 30.3 (25.0-35.0) pg MCHC 33.5 (31.0-37.0) g/dL RDW 16.1 H (11.5-15.5) % Plt Count 291 (150-450) k/uL Neutrophils % 87 % Lymphocytes % 6 % Monocytes % 5 % Eosinophils % 1 % Basophils % 0 % Neutrophils # 11.4 H (1.3-7.7) k/uL Lymphocytes # 0.8 L (1.0-4.8) k/uL Monocytes # 0.7 (0-1.0) k/uL Eosinophils # 0.1 (0-0.7) k/uL Basophils # 0.0 (0-0.2) k/uL Anisocytosis Slight Sodium 124 L (137-145) mmol/L Potassium 6.0 H (3.5-5.1) mmol/L Chloride 92 L (98-107) mmol/L Carbon Dioxide 18 L (22-30) mmol/L Anion Gap 14 mmol/L BUN 43 H (9-20) mg/dL Creatinine 1.20 (0.66-1.25) mg/dL Est GFR (MDRD) Af Amer >60 (>60 ml/min/1.73 sqM) Est GFR (MDRD) Non-Af >60 (>60 ml/min/1.73 sqM) Glucose 123 H (74-99) mg/dL Calcium 8.3 L (8.4-10.2) mg/dL Magnesium 1.9 (1.6-2.3) mg/dL Total Bilirubin 1.5 H (0.2-1.3) mg/dL AST 108 H (17-59) U/L ALT 151 H (21-72) U/L Alkaline Phosphatase 153 H (38-126) U/L Total Protein 6.9 (6.3-8.2) g/dL Albumin 3.2 L (3.5-5.0) g/dL Amylase 36 (30-110) U/L Lipase 93 (23-300) U/L 11/02/16 23:40 Sinus tachycardia with PACs. Previous inferior infarct. Ventricular rate of 106 bpm. DC interval 146 ms. QRS ration 100 ms. QT QTc is 360/470 ms. No evidence of ST elevation or T-wave inversion. No evidence of atrial or ventricular arrhythmias. - Radiology Data Radiology results: report reviewed KUB shows Several dilated loops of small bowel are noted in the right upper quadrant. Findings concerning for an ileus. Partial or complete small bowel obstruction is difficult to exclude. Chest x-rays negative for any acute cardiac process. CT abdomen: Ill-defined region of decreased attenuation involving the majority of the right hepatic lobe raising concern for infiltrate neoplasm worsening since prior study. We'll smaller hypodense lesions are seen throughout the left hepatic lobe in the caudate lobe. Concerning for satellite lesions. Interval increase in number since the prior study. Nonemergent MRI of the abdomen with contrast is recommended. Moderate ascites. Right vein thrombus again is noted. This is likely due to tumor thrombus. Soft tissue mass adjacent otitis which appears to arise from the pancreas concerning for pancreatic neoplasm with central necrosis. Alternatively this represents metastatic disease to the portal hepatic lymph node with central necrosis. There is a 0.5 cm nodule within the right lower lung lobe. Similar to prior study. Given findings concerning for neoplasm. Heterogeneous enhancement of the spleen which may represent phase of contrast versus metastases disease seen not seen on prior study. Disposition Clinical Impression: Liver cancer, Dehydration, Ascites, Hematemesis with nausea Disposition: ADMITTED IP TO THIS HOSP Condition: Stable Time of Disposition: 23:23
[2016-11-02] MEDS: SODIUM CHLORIDE 0.9% 1,000 ML IV STA (20:14)
[2016-11-02 20:35] LABS: Anisocytosis Slight; Basophils % (A) 0 %; CH 30.1; CHCM 33.5; Eosinophils # (A) 0.1 k/uL (0-0.7); Eosinophils % (A) 1 %; HCT 23.8 % (39.0-53.0); HDW 3.36; Luc # (Auto) 0.13; Luc % (Auto) 1; Lymphocytes # (A) 0.8 k/uL (1.0-4.8); Lymphocytes % (A) 6 %; MCH 30.3 pg (25.0-35.0); MCHC 33.5 g/dL (31.0-37.0); MCV 90.6 fL (80.0-100.0); Mean Platelet Volume 7.8; Monocytes # (A) 0.7 k/uL (0-1.0); Monocytes % (A) 5 %; Neutrophils # (A) 11.4 k/uL (1.3-7.7); Neutrophils % (A) 87 %; RBC 2.63 m/uL (4.30-5.90); RDW 16.1 % (11.5-15.5); WBC 13.2 k/uL (3.8-10.6); WBC (Perox) 13.35
--- NOTE | 2016-11-02 20:42 | XR ---
Exam: Abdomen 2 views TECHNIQUE: 2 views the abdomen were obtained and compared to previous study from September 12, 2016. HISTORY: Abdominal distention and pain. FINDINGS: There is no large amount of free intraperitoneal air identified. There are multiple loops of nonspeci fic prominent small bowel in the right upper quadrant measuring up to 4.8 cm. With air-fluid levels. Multiple coils are identified in the region of the gastroduodenal artery. There is ill-defined markings within the abdomen consistent with ascites. IMPRESSION: Several dilated loops of small bowel are noted in the right upper quadrant. Findings concerning for a n ileus. Partial or early complete small bowel obstruction is difficult to exclude.
--- NOTE | 2016-11-02 20:44 | XR ---
EXAMINATION TYPE: XR chest 2V DATE OF EXAM: 11/02/2016 COMPARISON: December 15, 2015. HISTORY: Chest pain TECHNIQUE: Frontal and lateral views of the chest are obtained. FINDINGS: There is no focal air space opacity, pleural effusion, or pneumothorax seen. The cardiac silhouette size is within normal limits. The osseous structures are intact. IMPRESSION: No acute cardiopulmonary process.
[2016-11-02 20:45] LABS: ALT 151 U/L (21-72); AST 108 U/L (17-59); Alkaline Phosphatase 153 U/L (38-126); Amylase 36 U/L (30-110); Anion Gap 14 mmol/L; Blood Urea Nitrogen 43 mg/dL (9-20); Calcium 8.3 mg/dL (8.4-10.2); Carbon Dioxide 18 mmol/L (22-30); Chloride 92 mmol/L (98-107); Glucose 123 mg/dL (74-99); Non-African American GFR(MDRD) >60 (>60 ml/min/1.73 sqM); Sodium 124 mmol/L (137-145); Total Bilirubin 1.5 mg/dL (0.2-1.3); Total Protein 6.9 g/dL (6.3-8.2)
[2016-11-02] MEDS ORDERED: RX INFO: IV CONTRAST WAS GIVEN 1 EACH MISC MISCELLANE PRN (21:23)
[2016-11-02] MEDS ORDERED: SODIUM POLYSTYRENE SULFONATE 30 GM/120 ML BOTTLE RECTAL STA (22:24)
--- NOTE | 2016-11-02 22:54 | CT ---
Abdomen and Pelvis With Intravenous Contrast CLINICAL HISTORY: History liver cancer with abdominal. TECHNIQUE: Axial computed tomography images of the abdomen and pelvis with intravenous contrast. CTDI is 24.70 mGy and DLP is 964.70 mGy-cm. This CT exam was performed using one or more of the following dose reduction techniques: automated exposure control, adjustment of the mA and/or kV according to patient size, and/or use of iterative reconstruction technique. COMPARISON: CT of the abdomen/pelvis dated 09/11/2016 FINDINGS: Lower thorax: A 0.5 cm nodule seen within the right lower lobe, similar to prior study. Given the patient's findings, this is concerning for neoplasm. ABDOMEN: Liver: Ill-defined region of decreased attenuation is seen involving the majority of the of the right hepatic lobe, raising concern for infiltrative neoplasm, interval worsening since the prior study. Multiple smaller hypodense lesions are seen throughout the left hepatic lobe, largest of which measures up to 1.4 cm in hepatic segment 2, concerning for satellite lesions, interval increase in number since the prior study consistent with progression of disease. Gallbladder and bile ducts: Cholelithiasis is seen. No ductal dilation. Pancreas: Soft tissue mass with central hypodensity is seen adjacent to the nneka hepatis, measuring 8.2 x 4.3 x 4.9 cm, which appears to arise from the pancreas raising concern for pancreatic neoplasm with central necrosis. Alternatively, this represents metastatic disease to a portal hepatic lymph node with central necrosis. Interval increase in size since the prior study. Spleen: Heterogeneous enhancement of the spleen, which may represent phase of contrast versus metastatic disease. Adrenals: Unremarkable. No mass. Kidneys and ureters: A few subcentimeter renal cysts are seen. No hydronephrosis. Stomach and bowel: Small hiatal hernia is seen. No obstruction. No mucosal thickening. Appendix: No findings to suggest acute appendicitis. PELVIS: Bladder: Unremarkable. No mass. Reproductive: Central calcifications are seen within the prostate. ABDOMEN and PELVIS: Intraperitoneal space: Moderate ascites is seen, new since prior study. Bones/joints: Multiple compression fractures involving the L1-L3 vertebral bodies with fracture partial compression fracture involving the superior endplate of the L4 vertebral body, as seen on prior study. Associated degenerative changes are seen involving the visualized thoracolumbar spine. No dislocation. Soft tissues: Unremarkable. 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 The SMA is not involved in the above-mentioned process. The SMV is abutted by the above-mentioned process without evidence of invasion. Moderate atherosclerotic vascular calcifications involving the intra-abdominal aorta. Lymph nodes: Soft tissue mass with central hypodensity is seen adjacent to the nneka hepatis, measuring 8.2 x 4.3 x 4.9 cm, which appears to arise from the pancreas raising concern for pancreatic neoplasm with central necrosis. Alternatively, this represents metastatic disease to a portal hepatic lymph node with central necrosis. Interval increase in size since the prior study. Other findings: New hyperdense material noted in the epigastric region, of unknown significance. Correlate with patient's surgical history. IMPRESSION: 1. Ill-defined region of decreased attenuation involving the majority of the of the right hepatic lobe, raising concern for infiltrative neoplasm, interval worsening since the prior study. Multiple smaller hypodense lesions are seen throughout the left hepatic lobe and the caudate lobe, concerning for satellite lesions, interval increase in number since the prior study. Nonemergent MRI of the abdomen with IV contrast is recommended for further evaluation 2. Moderate ascites, new since prior study. 3. 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 This is likely due to tumor thrombus. 4. Soft tissue mass with central hypodensity adjacent to the nneka hepatis, which appears to arise from the pancreas raising concern for pancreatic neoplasm with central necrosis. Alternatively, this represents metastatic disease to a portal hepatic lymph node with central necrosis. Interval increase in size since the prior study. 5. A 0.5 cm nodule within the right lower lung lobe, similar to prior study. Given the patient's findings, this is concerning for neoplasm. 6. Heterogeneous enhancement of the spleen, which may represent phase of contrast versus metastatic disease, not seen on prior study.
[2016-11-02] MEDS ORDERED: ONDANSETRON 4 MG/2 ML VIAL IVP PRN (23:24)
[2016-11-02] MEDS ORDERED: NALOXONE 0.4 MG/ML 1 ML VIAL IV PRN (23:24)
[2016-11-02] MEDS ORDERED: HYDROmorphone 1 MG/ML 1 ML SYRINGE IV PRN (23:24)
[2016-11-02] MEDS ORDERED: LORazepam 2 MG/ML SYRINGE IV PRN (23:24)
[2016-11-02] MEDS ORDERED: SODIUM CHLORIDE 0.9% 1,000 ML IV SCH (23:30)
[2016-11-03 00:19] VITALS: RESP 20
[2016-11-03 01:37] VITALS: BMI 24.5
[2016-11-03] MEDS: SODIUM CHLORIDE 0.9% 1,000 ML IV STA (01:55)
[2016-11-03 02:32] VITALS: BP 178/77; PULSE 96; TEMP 97.4
[2016-11-03 04:53] LABS: Glucose,Whole Blood 114 mg/dL (75-99)
[2016-11-03] MEDS ORDERED: SORAFENIB PO SCH (09:00)
[2016-11-03] MEDS ORDERED: PANTOPRAZOLE 40 MG/10 ML VIAL IV SCH (09:00)
--- NOTE | 2016-11-06 13:06 | HP ---
HISTORY AND PHYSICAL AND DISCHARGE SUMMARY: HISTORY OF PRESENT ILLNESS: This is a 65-year-old gentleman with a past medical history of chronic hepatitis C and as well as cirrhosis of the liver and possible carcinoma was admitted with nausea, vomiting and ascites. Patient had a CAT scan of the abdomen and pelvis in the ER which showed multiple lesions in the liver and pancreas and showed malignancy. The patient went into cardiac arrest overnight before being seen and the patient succumbed to his medical issues. The pt probably had massive hemoptysis from esophageal varices from cirrhosis and aspiration as well. The patient's prognosis was guarded because of the extensive multiple medical disease as mentioned earlier. Please refer to the previous dictations for further information. The PRELIMINARY CAUSE OF is: 1. Hepatocellular carcinoma. Other diagnoses: Cardiopulmonary arrest Massive hemoptysis from cirrhosis Probable aspiration 2. Further contributing factors cirrhosis of the liver possibly secondary to hepatitis C. 3. Hypernatremia. 4. Hyperkalemia. 5. Anemia. 6,. Increased WBC. MTDD
--- NOTE | 2016-11-16 13:37 | PN ---
ADDENDUM: Please add: FINAL DIAGNOSIS: Acute blood loss anemia from massive hematemesis. AGUSTINAD
== END 2016-11-03 09:10 | disposition expired | DRG 435 ==
LOC: EC 19:08 → 5MS5E 23:24
PROVIDERS: ADMIT Hospitalist; ATTEND Hospitalist
PROC: 5A12012 Performance of Cardiac Output, Single, Manual (ICD-10-PCS; principal; 2016-11-02)
DX: C22.0 Liver cell carcinoma (principal); I85.11 Secondary esophageal varices with bleeding; I46.9 Cardiac arrest, cause unspecified; R18.8 Other ascites; E87.5 Hyperkalemia; D62 Acute posthemorrhagic anemia; K74.60 Unspecified cirrhosis of liver; E86.0 Dehydration; B18.2 Chronic viral hepatitis C; G89.29 Other chronic pain; K86.9 Disease of pancreas, unspecified; I25.10 Atherosclerotic heart disease of native coronary artery without angina pectoris; K21.9 Gastro-esophageal reflux disease without esophagitis; I25.2 Old myocardial infarction; K44.9 Diaphragmatic hernia without obstruction or gangrene; H93.13 Tinnitus, bilateral; F17.200 Nicotine dependence, unspecified, uncomplicated; D64.9 Anemia, unspecified; Z79.82 Long term (current) use of aspirin; Z79.01 Long term (current) use of anticoagulants; Z79.899 Other long term (current) drug therapy; Z95.5 Presence of coronary angioplasty implant and graft; Z87.81 Personal history of (healed) traumatic fracture
CPT/HCPCS: 36415; 71020; 74000; 74177; 80053; 82150; 82272; 83690; 83735; 84132; 85025; 93005